=== PATIENT | male | born 1985 | race Caucasian/White ===

== ENCOUNTER 2017-03-25 13:54 | Emergency (ER) | payer MEDICAID ==
[~2017-03-25] VITALS: Ht 193 cm; Wt 101.6 kg
[2017-03-25 14:01] VITALS: BP 153/82
== END 2017-03-25 16:09 | disposition home or self-care (01) ==
LOC: ER 14:04
DX: S60.031A Contusion of right middle finger without damage to nail, initial encounter (principal); W22.8XXA Striking against or struck by other objects, initial encounter; Y93.89 Activity, other specified; Y92.89 Other specified places as the place of occurrence of the external cause; Y99.8 Other external cause status
CPT/HCPCS: 73140